=== PATIENT | male | born 1945 | race Caucasian/White ===

== ENCOUNTER 2019-04-22 05:32 | Inpatient (IN) ==
[~2019-04-22 05:32] MED LIST: LACTATED RINGERS 1,000 ML IV SCH
[2019-04-22] MEDS ORDERED: VANCOMYCIN 1,000 MG VIAL ONE (05:50)
[2019-04-22] MEDS ORDERED: ceFAZolin 1,000 MG VIAL ONE (05:50)
[2019-04-22] MEDS ORDERED: VANCOMYCIN INJ 1,000 MG in SODIUM CHLORIDE 0.9% 250 ML IV ONE (06:00)
[2019-04-22] MEDS ORDERED: ceFAZolin 1,000 MG in SYRINGE 1 EACH IV ONE (06:00)
[2019-04-22] MEDS ORDERED: ROPIVACAINE 0.5% 30 ML VIAL ONE (08:55)
[2019-04-22] MEDS ORDERED: LIDOCAINE 1% 5 ML VIAL ONE (08:55)
[2019-04-22] MEDS ORDERED: DEXAMETHASONE 4 MG/1 ML VIAL ONE ×2 (08:55→11:41)
[2019-04-22] MEDS ORDERED: GABAPENTIN 400 MG CAPSULE PO ONE (09:03)
[2019-04-22] MEDS ORDERED: ACETAMINOPHEN 500 MG TABLET PO ONE (09:03)
[2019-04-22] MEDS ORDERED: LACTULOSE 20 GM/30 ML UDCUP PO PRN (09:59)
[2019-04-22] MEDS ORDERED: TEMAZEPAM 7.5 MG CAPSULE PO PRN (09:59)
[2019-04-22] MEDS ORDERED: MORPHINE 4 MG/1 ML VIAL IV PRN (09:59)
[2019-04-22] MEDS ORDERED: MAGNESIUM HYDROXIDE SUSP 30 ML UDCUP PO PRN (09:59)
[2019-04-22] MEDS ORDERED: diphenhydrAMINE CAP 25 MG CAPSULE PO PRN (09:59)
[2019-04-22] MEDS ORDERED: ONDANSETRON 4 MG/2 ML VIAL IV PRN ×2 (09:59→11:38)
[2019-04-22] MEDS ORDERED: PROMETHAZINE 25 MG/1 ML VIAL IM PRN (09:59)
[2019-04-22] MEDS ORDERED: BISACODYL 10 MG SUPP RECTAL PRN (09:59)
[2019-04-22] MEDS ORDERED: PROMETHAZINE INJ 25 MG in SODIUM CHLORIDE 0.9% 50 ML IV PRN (11:38)
[2019-04-22] MEDS ORDERED: diphenhydrAMINE 50 MG/1 ML VIAL IV PRN (11:38)
[2019-04-22] MEDS ORDERED: LIDOCAINE 2% 5 ML VIAL ONE ×2 (11:40→11:42)
[2019-04-22] MEDS ORDERED: PROPOFOL 200 MG/20 ML VIAL IV ONE (11:40)
[2019-04-22] MEDS ORDERED: SEVOFLURANE 1 UNIT/15 MINUTE INH ONE (11:40)
[2019-04-22] MEDS ORDERED: TRANEXAMIC ACID 1,000 MG/10 ML VIAL ONE (11:41)
[2019-04-22] MEDS ORDERED: LACTATED RINGERS 1,000 ML IV ONE (11:41)
[2019-04-22] MEDS ORDERED: MIDAZOLAM 2 MG/2 ML VIAL ONE (11:41)
[2019-04-22] MEDS ORDERED: ETOMIDATE 40 MG/20 ML VIAL IV ONE (11:41)
[2019-04-22] MEDS ORDERED: fentaNYL 100 MCG/2 ML VIAL ONE (11:41)
[2019-04-22] MEDS ORDERED: PHENYLEPHRINE 1 MG/10 ML SYRINGE IV ONE (11:41)
[2019-04-22] MEDS ORDERED: SODIUM CHLORIDE 0.9% 250 ML IV ONE (11:41)
[2019-04-22] MEDS ORDERED: PROMETHAZINE 25 MG/1 ML VIAL ONE (11:44)
[2019-04-22] MEDS: MEPERIDINE 25 MG/1 ML VIAL IV PRN ×2 (11:50→12:00)
[2019-04-22] MEDS ORDERED: hydrALAZINE 20 MG/1 ML VIAL ONE (12:22)
[2019-04-22] MEDS ORDERED: hydrALAZINE 20 MG/1 ML VIAL IV ONE (12:24)
[2019-04-22] MEDS ORDERED: BUPIVACAINE SPINAL 0.75% 2 ML AMP SPINAL ONE (13:36)
[2019-04-22 14:39] LABS: Basophils % 0.1 % (0.0-0.8); Hematocrit 41.9 VOL% (42.0-52.0); Hemoglobin 13.7 GM/DL (14.0-18.0); Immature Granulocytes % 0.4 %; Immature Granulocytes Absolute 0.05 #; Lymphocytes # 0.5 10*3/uL (1.4-4.0); Lymphocytes % 3.8 % (21.2-54.2); Mean Corpuscular HGB Conc 32.7 GM/DL (32-36); Mean Corpuscular Volume 92.1 FL (87-102); Mean Platelet Volume 9.7 FL (9.6-12.0); Monocytes % 1.3 % (1.7-12.7); Neutrophils % 94.4 % (38.7-73.9); Platelet Count 227 T/CUMM (130-400); Red Blood Count 4.55 MC/CUMM (3.8-5.5); Red Cell Distribution Width 13.1 % (9.3-17.3); White Blood Count 13.8 T/CUMM (4-12)
[2019-04-22 14:44] LABS: Calcium 9.5 MG/DL (8.5-10.1); Osmolality,Calculated 281.4 MOS/KG (273-304)
[2019-04-22 16:13] LABS: Hypochromasia Slight; Lymphocytes 3 % (20-55); Microcytosis 2+; Segmented Neutrophils 97 % (50-85); Total Cells Counted 100
[2019-04-22 16:14] LABS: Platelet Estimate Adequate
[2019-04-22] MEDS: ceFAZolin 2,000 MG in PREMIX 1 EACH IV SCH (17:00)
[2019-04-22] MEDS: FONDAPARINUX 2.5 MG/0.5 ML SYRINGE SUBCUT SCH (20:24)
[2019-04-22] MEDS: DOCUSATE SODIUM 100 MG CAPSULE PO SCH (20:25)
[2019-04-22] MEDS: ATORVASTATIN 20 MG TABLET PO SCH (20:25)
[2019-04-22] MEDS: MONTELUKAST 10 MG TABLET PO SCH (20:25)
[2019-04-23] MEDS: ceFAZolin 2,000 MG in PREMIX 1 EACH IV SCH (01:03)
[2019-04-23 04:51] LABS: Basophils % 0.2 % (0.0-0.8); Eosinophils % 0.1 % (0.00-10.9); Hematocrit 36.1 VOL% (42.0-52.0); Hemoglobin 11.8 GM/DL (14.0-18.0); Immature Granulocytes % 0.3 %; Immature Granulocytes Absolute 0.03 #; Lymphocytes # 1.4 10*3/uL (1.4-4.0); Lymphocytes % 12.1 % (21.2-54.2); Mean Corpuscular HGB Conc 32.7 GM/DL (32-36); Mean Platelet Volume 9.2 FL (9.6-12.0); Monocytes % 10.8 % (1.7-12.7); Neutrophils % 76.5 % (38.7-73.9); Platelet Count 187 T/CUMM (130-400); Red Blood Count 3.88 MC/CUMM (3.8-5.5); Red Cell Distribution Width 13.2 % (9.3-17.3); White Blood Count 11.1 T/CUMM (4-12)
[2019-04-23 05:23] LABS: Calcium 8.9 MG/DL (8.5-10.1); Osmolality,Calculated 286.8 MOS/KG (273-304)
[2019-04-23] MEDS: MELOXICAM 7.5 MG TABLET PO SCH (09:32)
[2019-04-23] MEDS: PANTOPRAZOLE 40 MG TABLET PO SCH (09:33)
[2019-04-23] MEDS: DOCUSATE SODIUM 100 MG CAPSULE PO SCH ×2 (09:33→21:31)
[2019-04-23] MEDS: LOSARTAN 50 MG TABLET PO SCH (09:33)
[2019-04-23] MEDS: FONDAPARINUX 2.5 MG/0.5 ML SYRINGE SUBCUT SCH (21:31)
[2019-04-23] MEDS: MONTELUKAST 10 MG TABLET PO SCH (21:31)
[2019-04-23] MEDS: ATORVASTATIN 20 MG TABLET PO SCH (21:31)
[2019-04-24] MEDS: PANTOPRAZOLE 40 MG TABLET PO SCH (10:06)
[2019-04-24] MEDS: MELOXICAM 7.5 MG TABLET PO SCH (10:07)
[2019-04-24] MEDS: LOSARTAN 50 MG TABLET PO SCH (10:08)
[2019-04-24] MEDS: DOCUSATE SODIUM 100 MG CAPSULE PO SCH ×2 (10:08→21:13)
[2019-04-24] MEDS: MONTELUKAST 10 MG TABLET PO SCH (21:13)
[2019-04-24] MEDS: ATORVASTATIN 20 MG TABLET PO SCH (21:13)
[2019-04-24] MEDS: FONDAPARINUX 2.5 MG/0.5 ML SYRINGE SUBCUT SCH (21:14)
[2019-04-25] MEDS: MELOXICAM 7.5 MG TABLET PO SCH (08:57)
[2019-04-25] MEDS: DOCUSATE SODIUM 100 MG CAPSULE PO SCH (08:57)
[2019-04-25] MEDS: LOSARTAN 50 MG TABLET PO SCH (08:57)
[2019-04-25] MEDS: PANTOPRAZOLE 40 MG TABLET PO SCH (08:57)
[2019-04-25 12:07] VITALS: BP 123/69
== END 2019-04-25 12:30 | disposition swing bed (61) | DRG 470 ==
LOC: N.OR 05:32 → N.SDSINP 05:32 → N.3E 13:18
PROVIDERS: ADMIT Orthopaedic Surgery; ATTEND Orthopaedic Surgery

== ENCOUNTER 2019-08-12 05:44 | Inpatient (IN) ==
[2019-08-12] MEDS ORDERED: VANCOMYCIN 1,000 MG VIAL ONE (05:54)
[2019-08-12] MEDS ORDERED: ceFAZolin 1,000 MG VIAL ONE (05:54)
[2019-08-12] MEDS ORDERED: ceFAZolin 1,000 MG in SYRINGE 1 EACH IV ONE (06:00)
[2019-08-12] MEDS ORDERED: VANCOMYCIN INJ 1,000 MG in SODIUM CHLORIDE 0.9% 250 ML IV ONE (06:00)
[2019-08-12] MEDS ORDERED: FAMOTIDINE 20 MG TABLET PO ONE (06:12)
[2019-08-12] MEDS ORDERED: ROPIVACAINE 0.5% 30 ML VIAL ONE (06:18)
[2019-08-12] MEDS ORDERED: DEXAMETHASONE 4 MG/1 ML VIAL ONE (06:19)
[2019-08-12] MEDS ORDERED: FAMOTIDINE 20 MG TABLET ONE (06:21)
[2019-08-12] MEDS ORDERED: LACTATED RINGERS 1,000 ML IV SCH (06:30)
[2019-08-12] MEDS ORDERED: ACETAMINOPHEN 1,000 MG/100 ML VIAL IV ONE (06:52)
[2019-08-12] MEDS ORDERED: BUPIVACAINE SPINAL 0.75% 2 ML AMP SPINAL ONE (06:52)
[2019-08-12] MEDS ORDERED: MIDAZOLAM 2 MG/2 ML VIAL ONE (06:52)
[2019-08-12] MEDS ORDERED: TEMAZEPAM 7.5 MG CAPSULE PO PRN (07:03)
[2019-08-12] MEDS ORDERED: diphenhydrAMINE CAP 25 MG CAPSULE PO PRN (07:03)
[2019-08-12] MEDS ORDERED: LACTULOSE 20 GM/30 ML UDCUP PO PRN (07:03)
[2019-08-12] MEDS ORDERED: MORPHINE 4 MG/1 ML VIAL IV PRN (07:03)
[2019-08-12] MEDS ORDERED: ONDANSETRON 4 MG/2 ML VIAL IV PRN ×2 (07:03→09:07)
[2019-08-12] MEDS ORDERED: PROMETHAZINE 25 MG/1 ML VIAL IM PRN (07:03)
[2019-08-12] MEDS ORDERED: BISACODYL 10 MG SUPP RECTAL PRN (07:03)
[2019-08-12] MEDS ORDERED: propofoL 200 MG/20 ML VIAL IV ONE (08:54)
[2019-08-12] MEDS ORDERED: KETAMINE 500 MG/10 ML VIAL ONE (08:54)
[2019-08-12] MEDS ORDERED: LIDOCAINE 2% 5 ML VIAL ONE (08:54)
[2019-08-12] MEDS ORDERED: TRANEXAMIC ACID 1,000 MG/10 ML VIAL ONE (08:55)
[2019-08-12] MEDS ORDERED: KETOROLAC 30 MG/1 ML VIAL ONE (08:55)
[2019-08-12] MEDS ORDERED: ONDANSETRON 4 MG/2 ML VIAL ONE (08:55)
[2019-08-12] MEDS: HYDROmorphone 2 MG/1 ML VIAL IV PRN ×2 (09:10→09:15)
[2019-08-12 12:42] LABS: Basophils % 0.1 % (0.0-0.8); Hemoglobin 13.6 GM/DL (14.0-18.0); Immature Granulocytes % 0.4 %; Immature Granulocytes Absolute 0.05 #; Lymphocytes # 0.6 10*3/uL (1.4-4.0); Lymphocytes % 4.3 % (21.2-54.2); Mean Corpuscular HGB Conc 33.2 GM/DL (32-36); Mean Corpuscular Volume 88.2 FL (87-102); Mean Platelet Volume 9.1 FL (9.6-12.0); Monocytes % 3.5 % (1.7-12.7); Neutrophils % 91.7 % (38.7-73.9); Platelet Count 211 T/CUMM (130-400); Red Blood Count 4.65 MC/CUMM (3.8-5.5); Red Cell Distribution Width 13.8 % (9.3-17.3); White Blood Count 14.1 T/CUMM (4-12)
[2019-08-12 13:00] LABS: Calcium 9.4 MG/DL (8.5-10.1)
[2019-08-12 13:07] LABS: Lymphocytes 4 % (20-55); Platelet Estimate Adequate; Segmented Neutrophils 92 % (50-85); Total Cells Counted 100
[2019-08-12] MEDS: ceFAZolin 2,000 MG in PREMIX 1 EACH IV SCH ×2 (14:10→23:04)
[2019-08-12] MEDS: MELOXICAM 7.5 MG TABLET PO SCH (14:15)
[2019-08-12] MEDS: DOCUSATE SODIUM 100 MG CAPSULE PO SCH ×2 (14:15→21:58)
[2019-08-12] MEDS: LOSARTAN 50 MG TABLET PO SCH (14:15)
[2019-08-12] MEDS: PANTOPRAZOLE 40 MG TABLET PO SCH (14:17)
[2019-08-12] MEDS: ATORVASTATIN 20 MG TABLET PO SCH (21:58)
[2019-08-12] MEDS: FONDAPARINUX 2.5 MG/0.5 ML SYRINGE SUBCUT SCH (21:58)
[2019-08-12] MEDS: MONTELUKAST 10 MG TABLET PO SCH (21:58)
[2019-08-13 05:43] LABS: Basophils % 0.1 % (0.0-0.8); Eosinophils # 0.1 10*3/uL (0.0-0.87); Eosinophils % 0.6 % (0.00-10.9); Hematocrit 35.9 VOL% (42.0-52.0); Hemoglobin 11.8 GM/DL (14.0-18.0); Immature Granulocytes % 0.5 %; Immature Granulocytes Absolute 0.05 #; Lymphocytes # 1.1 10*3/uL (1.4-4.0); Lymphocytes % 11.3 % (21.2-54.2); Mean Corpuscular HGB Conc 32.9 GM/DL (32-36); Mean Corpuscular Volume 89.1 FL (87-102); Mean Platelet Volume 9.5 FL (9.6-12.0); Monocytes % 9.9 % (1.7-12.7); Neutrophils % 77.6 % (38.7-73.9); Platelet Count 200 T/CUMM (130-400); Red Blood Count 4.03 MC/CUMM (3.8-5.5); Red Cell Distribution Width 13.7 % (9.3-17.3); White Blood Count 9.4 T/CUMM (4-12)
[2019-08-13 06:14] LABS: Calcium 8.9 MG/DL (8.5-10.1); Osmolality,Calculated 278.7 MOS/KG (273-304)
[2019-08-13] MEDS: MELOXICAM 7.5 MG TABLET PO SCH (08:18)
[2019-08-13] MEDS: PANTOPRAZOLE 40 MG TABLET PO SCH (08:18)
[2019-08-13] MEDS: DOCUSATE SODIUM 100 MG CAPSULE PO SCH ×2 (08:18→20:57)
[2019-08-13] MEDS: LOSARTAN 50 MG TABLET PO SCH (08:18)
[2019-08-13] MEDS: FONDAPARINUX 2.5 MG/0.5 ML SYRINGE SUBCUT SCH (20:57)
[2019-08-13] MEDS: ATORVASTATIN 20 MG TABLET PO SCH (20:57)
[2019-08-13] MEDS: MONTELUKAST 10 MG TABLET PO SCH (20:57)
[2019-08-14] MEDS: MAGNESIUM HYDROXIDE SUSP 30 ML UDCUP PO PRN ×2 (01:37→21:16)
[2019-08-14] MEDS: MELOXICAM 7.5 MG TABLET PO SCH (08:46)
[2019-08-14] MEDS: DOCUSATE SODIUM 100 MG CAPSULE PO SCH ×2 (08:46→21:16)
[2019-08-14] MEDS: LOSARTAN 50 MG TABLET PO SCH (08:46)
[2019-08-14] MEDS: PANTOPRAZOLE 40 MG TABLET PO SCH (08:46)
[2019-08-14] MEDS: ATORVASTATIN 20 MG TABLET PO SCH (21:16)
[2019-08-14] MEDS: MONTELUKAST 10 MG TABLET PO SCH (21:16)
[2019-08-14] MEDS: FONDAPARINUX 2.5 MG/0.5 ML SYRINGE SUBCUT SCH (21:16)
[2019-08-15] MEDS: MELOXICAM 7.5 MG TABLET PO SCH (08:23)
[2019-08-15] MEDS: PANTOPRAZOLE 40 MG TABLET PO SCH (08:23)
[2019-08-15] MEDS: DOCUSATE SODIUM 100 MG CAPSULE PO SCH (08:23)
[2019-08-15] MEDS: LOSARTAN 50 MG TABLET PO SCH (08:23)
[2019-08-15 11:27] VITALS: BP 119/73
== END 2019-08-15 12:10 | DRG 470 ==
LOC: N.SDSINP 05:44 → N.OR 05:44 → N.SDSINP 07:03 → N.3E 09:47
PROVIDERS: ADMIT Orthopaedic Surgery; ATTEND Orthopaedic Surgery